=== PATIENT | female | born 1930 | race Caucasian/White ===

== ENCOUNTER → 2016-08-11 | Outpatient (CLI) | payer MEDICARE | END | disposition home or self-care (01) | LOC: PCVCCLINIC 11:36 | PROVIDERS: ATTEND Internal Medicine Cardiovascular Disease | DX: I45.10 Unspecified right bundle-branch block (principal); I73.9 Peripheral vascular disease, unspecified; I10 Essential (primary) hypertension; R10.819 Abdominal tenderness, unspecified site; R09.89 Other specified symptoms and signs involving the circulatory and respiratory systems; I35.1 Nonrheumatic aortic (valve) insufficiency; I49.5 Sick sinus syndrome; Z88.0 Allergy status to penicillin; Z88.1 Allergy status to other antibiotic agents; Z79.82 Long term (current) use of aspirin; Z79.899 Other long term (current) drug therapy; Z90.89 Acquired absence of other organs | CPT/HCPCS: 80061; 93005; G0463 ==

== ENCOUNTER → 2016-08-28 | Outpatient (CLI) | payer MEDICARE ==
--- NOTE | 2016-08-29 23:29 | PCVCIMAG ---
EXAM: AORTOILIAC DUPLEX INDICATION: Peripheral arterial disease FINDINGS: AORTA: Suprarenal aorta measures maximum diameter of 2.7 cm. There is not a fusiform infrarenal aortic aneurysm. The infrarenal aorta measures maximum diameter of 1.9 cm. No aortic stenosis. RIGHT COMMON ILIAC ARTERY: Maximum diameter is 1.0 cm. No significant stenosis. RIGHT EXTERNAL ILIAC ARTERY: No significant stenosis. LEFT COMMON ILIAC ARTERY: Maximum diameter is 1.0 cm. No significant stenosis. LEFT EXTERNAL ILIAC ARTERY: No significant stenosis. IMPRESSION: No abdominal aortic aneurysm. No aortoiliac stenosis seen. LOC:OFFICE
--- NOTE | 2016-08-29 23:32 | PCVCIMAG ---
EXAM: BILATERAL RENAL ULTRASOUND AND BILATERAL RENAL DUPLEX INDICATION: Hypertension FINDINGS: Right kidney: Length measures 9.2 cm. No hydronephrosis or extensive renal scarring. Right renal duplex: Adequate technical quality. No sonographic evidence of renal artery stenosis. The aortic to renal artery ratio is 1.1. The renal vein is patent. Left kidney: Length measures 12.6 cm. No hydronephrosis or extensive renal scarring. 8.4 x 8.9 cm benign cyst mid pole. 6.8 x 8.6 cm benign cyst upper pole. Left renal duplex: Adequate technical quality. 50% proximal renal artery stenosis. The aortic to renal artery ratio is 2.6. The renal vein is patent. Bladder: No obvious abnormalities. IMPRESSION: No significant right renal artery stenosis. 50% proximal left renal artery stenosis. LOC:OFFICE
== END | disposition home or self-care (01) ==
LOC: PCVCIMAG 09:44
PROVIDERS: ATTEND Internal Medicine Cardiovascular Disease
DX: I73.9 Peripheral vascular disease, unspecified (principal); I10 Essential (primary) hypertension; I70.1 Atherosclerosis of renal artery; N28.1 Cyst of kidney, acquired; I35.1 Nonrheumatic aortic (valve) insufficiency
CPT/HCPCS: 76770; 93975; 93978

== ENCOUNTER → 2016-10-14 | Outpatient (CLI) | payer MEDICARE | END | disposition home or self-care (01) | LOC: PCVCCLINIC 14:57 | PROVIDERS: ATTEND Internal Medicine Cardiovascular Disease | DX: I45.10 Unspecified right bundle-branch block (principal); I35.1 Nonrheumatic aortic (valve) insufficiency; I10 Essential (primary) hypertension; I73.9 Peripheral vascular disease, unspecified; I47.1 Supraventricular tachycardia; E78.00 Pure hypercholesterolemia, unspecified; I87.2 Venous insufficiency (chronic) (peripheral); Z79.82 Long term (current) use of aspirin; Z88.0 Allergy status to penicillin; Z88.2 Allergy status to sulfonamides | CPT/HCPCS: 80061; 93005; G0463 ==

== ENCOUNTER → 2017-02-12 | Outpatient (CLI) | payer MEDICARE | END | disposition home or self-care (01) | LOC: PCVCCLINIC 11:10 | PROVIDERS: ATTEND Internal Medicine Cardiovascular Disease | DX: I10 Essential (primary) hypertension (principal); I35.1 Nonrheumatic aortic (valve) insufficiency; E78.5 Hyperlipidemia, unspecified; I47.1 Supraventricular tachycardia; I73.9 Peripheral vascular disease, unspecified; I70.1 Atherosclerosis of renal artery; Z79.899 Other long term (current) drug therapy; Z79.82 Long term (current) use of aspirin | CPT/HCPCS: 80061; 93005; G0463 ==

== ENCOUNTER → 2017-08-21 | Outpatient (CLI) | payer MEDICARE | END | disposition home or self-care (01) | LOC: PCVCCLINIC 16:09 | DX: I35.1 Nonrheumatic aortic (valve) insufficiency (principal); I73.9 Peripheral vascular disease, unspecified; I10 Essential (primary) hypertension; R53.82 Chronic fatigue, unspecified; Z88.0 Allergy status to penicillin | CPT/HCPCS: 80061; 93005; G0463 ==